=== PATIENT | female | born 1960 | race Hispanic/Latino ===

== ENCOUNTER 2018-02-15 11:15 | Emergency (ER) | payer BC ==
[2018-02-15 11:15] VITALS: BMI 26.8
--- NOTE | 2018-02-15 11:36 | C.PDOC ---
History Of Present Illness 58 y/o female with history of hypothyroidism presents to ED stating she is withdrawing from alcohol. She reports drinking for 11 days straight and stopped at 2:30 this morning. Now she feels "shaky" and nausea. She reports h/o similar episodes in the past though no h/o withdrawal seizures. She does not want to be admitted for detox, requesting IVF. Denies drug use, SI/HI, chest pain, sob, vomiting, abdominal pain, trauma or any other complaints at this time. Time Seen by Provider: 02/15/18 11:23 Chief Complaint (Nursing): Substance Abuse History Per: Patient History/Exam Limitations: no limitations Onset/Duration Of Symptoms: Hrs Current Symptoms Are (Timing): Still Present Suicide/Self Injury Attempted (Context): None Modifying Factor(s): Alcohol Past Medical History Reviewed: Historical Data, Nursing Documentation, Vital Signs Vital Signs: Last Vital Signs Temp 97.8 F 02/15/18 14:50 Pulse 89 02/15/18 14:50 Resp 20 02/15/18 14:50 BP 125/86 02/15/18 14:50 Pulse Ox 100 02/20/18 16:17 - Medical History PMH: Depression, Diverticulitis, Hypothyroidism, Malignancy (lymphoma) Surgical History: No Surg Hx - [facility] Procedures INJECT/INFUSE NEC (11/21/14) Family History: States: No Known Family Hx - Social History Hx Tobacco Use: No Hx Alcohol Use: Yes (Binge drinking) Hx Substance Use: No Review Of Systems Except As Marked, All Systems Reviewed And Found Negative. Constitutional: Negative for: Fever, Chills Gastrointestinal: Positive for: Vomiting. Negative for: Abdominal Pain Musculoskeletal: Negative for: Arm Pain Neurological: Positive for: Dizziness Psych: Positive for: Withdrawal. Negative for: Anxiety, Suicidal ideation Physical Exam - Physical Exam Appears: Non-toxic, Other (Tremulous (? intentional)) Skin: Warm, Dry, No Rash Head: Atraumatic, Normacephalic Eye(s): bilateral: Normal Inspection, EOMI Nose: Normal Neck: Normal ROM, Supple Chest: Symmetrical Cardiovascular: Rhythm Regular Respiratory: Normal Breath Sounds, No Rales, No Rhonchi, No Wheezing Gastrointestinal/Abdominal: Soft, No Tenderness, No Guarding, No Rebound Extremity: Normal ROM, No Pedal Edema, Capillary Refill (<2 seconds) Neurological/Psych: Oriented x3, Normal Speech, Normal Cognition ED Course And Treatment - Laboratory Results Result Diagrams: 02/15/18 12:12 02/15/18 12:12 O2 Sat by Pulse Oximetry: 100 (RA) Pulse Ox Interpretation: Normal Progress Note: Labs evaluated, elevated liver enzymes noted. They have improved from 01/06/18. PRevious visits evaluated, multiple visits for binge drinking. On re-evaluation, patient is not tremulous, steady gait, tolerating po intake, abdomen soft and non tender. Patient reports similar episdoes 2 months ago, given Ativan prescription but did not fill it. Patient has no history of withdrawal seizures and agrees upon plan of discharge. Pt admits to not taking her thyroid medication while drinking. Pt does not want detox. PT requests to go home. Instructed to follow up with her doctor in 1-2 days. Case dsicussed, work up evaluated and discharge agreed upon with Dr Mcginnis. Disposition - Disposition Disposition: HOME/ ROUTINE Disposition Time: 14:16 Condition: STABLE Additional Instructions: Restart your thyroid medication. If you want detox, call [phone]. Follow up with your doctor in 1-2 days. Prescriptions: Lorazepam [Ativan] 0.5 mg PO BID #4 tab Instructions: Alcohol Abuse and Alcoholism (DC) Forms: [employer] (Irish) - Clinical Impression Clinical Impression: Alcohol abuse, Hypothyroidism - PA / [employer] / Resident Statement MD/DO has reviewed & agrees with the documentation as recorded. - Scribe Statement The provider has reviewed the documentation as recorded by the Rodolfo Mera All medical record entries made by the Shilohibmireya were at my direction and personally dictated by me. I have reviewed the chart and agree that the record accurately reflects my personal performance of the history, physical exam, medical decision making, and the department course for this patient. I have also personally directed, reviewed, and agree with the discharge instructions and disposition.
[2018-02-15] MEDS ORDERED: Sodium Chloride 0.9% 1,000 ML IV ONE (11:48)
[2018-02-15] MEDS ORDERED: Sodium Chloride 0.9% 1,000 ML ONE (11:58)
[2018-02-15 12:19] LABS: BASO % 0.7 % (0.0-2.0); EOS % 0.3 % (0.0-4.0); HEMOGLOBIN 12.7 g/dL (11.0-16.0); LYMPH % 16.3 % (20.0-40.0); MEAN CELL VOLUME 94.1 fL (81.0-99.0); MEAN CORPUSCULAR HGB CONC 35.1 g/dL (33.0-37.0); MEAN PLATELET VOLUME 7.6 fL (7.2-11.7); MONO # 0.2 K/uL (0.0-0.8); NEUT # 4.8 K/uL (1.8-7.0); NEUT % 78.7 % (50.0-75.0); NRBC % 0.1 % (0.0-2.0); RBC 3.86 Mil/uL (3.80-5.20); RED CELL DISTRIBUTION WIDTH 13.3 % (11.5-14.5); WHITE BLOOD COUNT 6.1 K/uL (4.8-10.8)
[2018-02-15 12:34] LABS: ALB/GLOB RATIO 1.7 (1.0-2.1); ALBUMIN 4.8 g/dL (3.5-5.0); ALT/SGPT 144 U/L (9-52); AST/SGOT 169 U/L (14-36); BLOOD UREA NITROGEN 8 mg/dL (7-17); CALCIUM 10.2 mg/dl (8.6-10.4); GFR NON-AFRICAN AMERICAN > 60
[2018-02-15 14:19] VITALS: O2SAT 100
[2018-02-15 15:08] VITALS: BP 125/86; PULSE 89; RESP 20; TEMP 97.8
--- NOTE | 2018-02-16 17:46 | CARD ---
APPROVED REPORT Date of service: 02/15/2018 EKG Measurement Heart [id number] <Conclusion> Normal sinus rhythm Normal ECG
== END 2018-02-15 15:00 | disposition home or self-care (01) ==
LOC: C.ER 11:15
DX: F10.10 Alcohol abuse, uncomplicated (principal); E03.9 Hypothyroidism, unspecified
CPT/HCPCS: 80053; 82948; 84443; 85025; 93005; 96361; 96374; 99285; J2405; J7030